=== PATIENT | female | born 1985 | race Caucasian/White ===

== ENCOUNTER → 2018-01-06 11:19 | Outpatient (CLI) | payer OTHER, SELFPAY ==
[2018-01-06 12:02] LABS: Basophils % 0.5 % (0.1-2.0); Eosinophils # 0.2 K/mm3 (0.0-0.4); Eosinophils % 2.7 % (0.1-12.0); Hematocrit 40.6 % (37.0-47.0); Hemoglobin 13.6 g/dL (12.2-16.2); Lymphocytes # 1.5 K/mm3 (0.7-4.5); Lymphocytes % 27.1 K/mm3 (10-50); Mean Corpuscular HGB Conc 33.5 g/dL (31.8-35.4); Mean Corpuscular Volume 95.6 fl (81-99); Mean Platelet Volume 7.6 fl (7.4-10.4); Monocytes # 0.2 K/mm3 (0.1-1.0); Monocytes % 3.7 % (1.7-9.3); Neutrophils # 3.8 K/mm3 (1.8-7.8); Neutrophils % 66.1 % (37.0-80.0); Platelet Count 226 K/mm3 (142-424); Red Blood Count 4.24 M/mm3 (4.20-5.40); Red Cell Distribution Width 12.5 % (11.5-17.5); White Blood Count 5.7 K/mm3 (4.8-10.8)
[2018-01-06 13:03] LABS: Thyroid Stimulating Hormone 0.48 uIU/ml (0.358-3.740)
== END ==
PROVIDERS: Visit Provider Obstetrics & Gynecology
DX: Z01.419 Encounter for gynecological examination (general) (routine) without abnormal findings (principal); N93.8 Other specified abnormal uterine and vaginal bleeding
CPT/HCPCS: 36415; 84443; 85025

== ENCOUNTER → 2018-01-29 12:54 | Outpatient (CLI) | payer OTHER, SELFPAY ==
--- NOTE | 2018-01-29 12:57 | US_ITS ---
US transvaginal HISTORY: ITS.REASON: pelvic pain ORDERING PHYSICIAN: Heber Valencia MD PATIENT AGE: 32 years Comparison: None FINDINGS: Uterus measures 9 x 5 x 6 cm with a combined endometrial thickness of 11 mm. scar is present along the lower uterine segment anteriorly. No uterine mass evident. The right ovary is 4.5 x 4.8 cm. There is a complex septated right ovarian cyst which measures 4 x 2.3 cm with some low-level echoes The left ovary is 3.7 x 1.8 cm and contains small cysts. No cul-de-sac fluid. IMPRESSION: 1. Endometrial thickness upper limits of normal at 11 mm. 2. Complex septated right ovarian cyst at 4 cm. There are small left ovarian cysts measuring up to 1 cm. Suggest follow-up ultrasound in 6-12 weeks to confirm resolution of the larger ovarian cyst
== END ==
PROVIDERS: Family Provider Obstetrics & Gynecology; PCP Family Medicine; Visit Provider Obstetrics & Gynecology
DX: R10.2 Pelvic and perineal pain (principal)
CPT/HCPCS: 76830

== ENCOUNTER → 2018-12-15 13:51 | Outpatient (CLI) | payer OTHER, SELFPAY ==
[2018-12-15 14:31] LABS: Basophils % 0.5 % (0.1-2.0); Eosinophils # 0.2 K/mm3 (0.0-0.4); Eosinophils % 2.7 % (0.1-12.0); Hematocrit 37.2 % (37.0-47.0); Hemoglobin 12.4 g/dL (12.2-16.2); Lymphocytes # 1.7 K/mm3 (0.7-4.5); Lymphocytes % 25.9 % (10-50); Mean Corpuscular HGB Conc 33.3 g/dL (31.8-35.4); Mean Corpuscular Hemoglobin 31.3 pg (27.0-31.2); Mean Corpuscular Volume 94.1 fl (81-99); Mean Platelet Volume 7.2 fl (7.4-10.4); Monocytes # 0.3 K/mm3 (0.1-1.0); Monocytes % 3.9 % (1.7-9.3); Neutrophils # 4.3 K/mm3 (1.8-7.8); Platelet Count 297 K/mm3 (142-424); Red Blood Count 3.96 M/mm3 (4.20-5.40); White Blood Count 6.4 K/mm3 (4.8-10.8)
[2018-12-15 15:11] LABS: Thyroid Stimulating Hormone 1.22 uIU/ml (0.358-3.740)
== END ==
PROVIDERS: Visit Provider Obstetrics & Gynecology
DX: N93.8 Other specified abnormal uterine and vaginal bleeding (principal); R10.2 Pelvic and perineal pain
CPT/HCPCS: 36415; 84443; 85025

== ENCOUNTER → 2018-12-18 15:59 | Outpatient (CLI) | payer OTHER, SELFPAY ==
--- NOTE | 2018-12-18 16:05 | US_ITS ---
US transvaginal HISTORY: ITS.REASON: dub ORDERING PHYSICIAN: Heber Valencia MD PATIENT AGE: 33 years Comparison: None FINDINGS: The uterus measures 8 x 5 x 5 cm with a combined endometrial thickness of 16 mm. There is some heterogeneous echogenicity of the endometrial. No uterine mass demonstrated. The left ovary is 2.3 x 1.8 x 2.2 cm and contains a 1.5 cm cyst. The right ovary is 3.3 x 2 cm and contains a 2 cm septated cyst. No cul-de-sac fluid evident. IMPRESSION: 1. Thickened endometrium at 16 mm with some heterogeneous echogenicity of the endometrium. 2. 2 cm septated right ovarian cyst
== END ==
PROVIDERS: PCP Family Medicine; Visit Provider Obstetrics & Gynecology
DX: N93.8 Other specified abnormal uterine and vaginal bleeding (principal); R10.2 Pelvic and perineal pain
CPT/HCPCS: 76830

== ENCOUNTER → 2019-01-13 15:35 | Outpatient (CLI) | payer OTHER, SELFPAY ==
--- NOTE | 2019-01-13 15:36 | US_ITS ---
US transvaginal HISTORY: ITS.REASON: pelvic pain abnormal uterine bleeding, follow-up thickened endometrium and ovarian cyst ORDERING PHYSICIAN: Heber Valencia MD PATIENT AGE: 33 years Comparison: 12/18/2018 FINDINGS: The uterus is 9 x 4 x 5 cm with a combined endometrial thickness of 12 mm previously at 16 mm. Echogenic foci are once again noted within the endometrium The left ovary is 2.7 x 1.6 cm. Small follicular cysts are present. The right ovary is 3.2 x 2 cm and contains small follicles. Previously noted septated right ovarian cyst has decreased in size now measuring 16 x 13 mm No cul-de-sac fluid evident. IMPRESSION: 1. Thickened endometrium with heterogeneous echogenicity. Endometrium measures 12 mm in thickness previously at 16 mm. 2. Decrease in size in the septated right ovarian cyst
== END ==
PROVIDERS: PCP Family Medicine; Visit Provider Obstetrics & Gynecology
DX: R10.2 Pelvic and perineal pain (principal)
CPT/HCPCS: 76830

== ENCOUNTER 2020-07-09 11:54 | Emergency (ER) | payer OTHER, SELFPAY ==
[2020-07-09 12:06] VITALS: BP 159/93; PULSE 82; RESP 17; TEMP 37.4; O2SAT 94; BMI 27.1
[2020-07-09 12:13] LABS: Microscopic, Urine URINE MICROSCOPIC (MICROSCOPIC)
--- NOTE | 2020-07-09 12:15 | HMH.EDUROGF ---
ED Disposition Clinical Impression: Menometrorrhagia UTI (urinary tract infection) Qualifiers: Urinary tract infection type: acute cystitis Hematuria presence: with hematuria Qualified Code(s): N30.01 - Acute cystitis with hematuria Disposition: Home, Self-Care Condition on Discharge: Fair Additional Instructions: No significant lab abnormality. No significant anemia. Patient advised to use nonsteroidal anti-inflammatory for decrease prostaglandin effect and to only both pain and bleeding relief. Urine did show evidence of urinary tract infection with nitrate positive urine indicating likely gram-negative infection. Patient will be treated with ciprofloxacin as she has allergy to cephalosporins. Patient advised to follow-up with PCP and DIRECTOR OF MEDIA for urine culture results as well as to discuss heavy periods and treatment options. Prescriptions: Ciprofloxacin HCl [Cipro 500mg Tab] 500 mg PO BID #14 tab Transmission Status: Pending to [facility] Referrals: Nathanael Browne [Primary Care Provider] - - Critical Care Critical Care Time: No Attestation: On , the high probability of a clinically significant, sudden or life threatening deterioration of the following system(s) required my full and direct attention, intervention and personal management. The time I documented below is in addition to time spent performing reported procedures but includes the following listed in this critical care notation. Medical Decision Making - Medical Records Medical records reviewed: Yes: I reviewed the patient's medical records. - Diego Inquiry Pt receiving controlled substance: No Vital Signs: 07/09/20 12:06 Temperature 99.3 F Temperature Source Oral Pulse Rate [Right Radial] 82 Respiratory Rate 17 Blood Pressure [Right Arm] 159/93 H Blood Pressure Mean [Right Arm] 115 02 Sat by Pulse Oximetry 94 L Oxygen Delivery Method Room Air - Lab Data Lab results reviewed: Yes: I reviewed the patient's lab results. Lab Results 07/09/20 12:05: Urine Color Red, Urine Appearance Turbid, Urine pH 8.5, Ur Specific [place] 1.020, Urine Protein 2+, Urine Glucose (UA) Negative, Urine Ketones Trace, Urine Blood 3+, Urine Nitrate Positive, Urine Bilirubin Negative, Urine Urobilinogen 1.0, Ur Leukocyte Esterase 1+ A, Urine RBC Tntc, Urine WBC 3-5, Ur Squamous Epith Cells Occasional, Urine Bacteria 1+ 07/09/20 12:05: Urine HCG, Qual Negative 07/09/20 12:20: WBC 7.7, RBC 4.66, Hgb 13.9, Hct 43.4, MCV 93.1, MCH 29.9, MCHC 32.1, RDW 16.3, Plt Count 329, MPV 7.4, Neut % (Auto) 75.1, Lymph % (Auto) 18.9, [facility] % (Auto) 3.6, Eos % (Auto) 1.8, Baso % (Auto) 0.5, Neut # (Auto) 5.8, Lymph # (Auto) 1.5, [facility] # (Auto) 0.3, Eos # (Auto) 0.1, Baso # (Auto) 0.0 07/09/20 12:20: Sodium 138, Potassium 4.1, Chloride 108 H Result diagrams: 07/09/20 12:20 07/09/20 12:20 Orders (Tests/Meds): ED MEDICATIONS Discontinued Medications Generic Name Dose Route Start Last Admin Trade Name Freq PRN Reason Stop Dose Admin Ketorolac Tromethamine 30 mg 07/09/20 12:18 07/09/20 12:29 Ketorolac 30mg/Ml Vial IV 07/09/20 12:19 30 mg ONCE ONE Administration Ondansetron HCl 8 mg 07/09/20 12:18 07/09/20 12:29 Ondansetron 4mg/2ml Vial IV 07/09/20 12:19 8 mg ONCE ONE Administration ORDERS Category Date Time Status Comprehensive Metabolic Panel Stat Lab 07/09/20 12:20 Results PT/INR [Prothrombin Time INR] Stat Lab 07/09/20 12:20 Received Urine Culture Stat Micro 07/09/20 12:05 Received Female Urogenital HPI - General Chief complaint: Vaginal Bleeding Stated complaint: uterine pain, excessive bleeding Time Seen by Provider: 07/09/20 12:10 Mode of Arrival: Ambulatory Source of Information: Patient Limitations: No Limitations Description of Symptoms (Recalled from ER Triage Doc. by RN): pt reports to ed with c/o heavy vaginal bleeding and clots/abdominal pain and cramping. pt states this is abnormal for her. denies pregna
[2020-07-09 12:17] LABS: Appearance,Urine TURBID (Clear); Bilirubin,Urine Negative (Negative); Blood, Urine 3+ (Negative); Color,Urine RED (Yellow); Glucose,Urine (UA) Negative (Negative); Ketones,Urine TRACE (Negative); Leukocyte Esterase,Urine 1+ (Negative); Nitrate,Urine POSITIVE (Negative); PH,Urine 8.5 (5.0-8.5); Protein,Urine 2+ (Negative)
[2020-07-09 12:18] LABS: Urine Pregnancy, HCG Qual. Negative (Negative)
[2020-07-09 12:29] LABS: Bacteria,Urine 1+ /lpf; RBC,Urine TNTC #/hpf (0-3); Squamous Epithelial Cell,Urine Occasional #/hpf (0-5)
[2020-07-09 12:32] LABS: Basophils % 0.5 % (0.1-2.0); Eosinophils # 0.1 K/mm3 (0.0-0.4); Eosinophils % 1.8 % (0.1-12.0); Hematocrit 43.4 % (37.0-47.0); Hemoglobin 13.9 g/dL (12.2-16.2); Lymphocytes # 1.5 K/mm3 (0.7-4.5); Lymphocytes % 18.9 % (10-50); Mean Corpuscular HGB Conc 32.1 g/dL (31.8-35.4); Mean Corpuscular Hemoglobin 29.9 pg (27.0-31.2); Mean Corpuscular Volume 93.1 fl (81-99); Mean Platelet Volume 7.4 fl (7.4-10.4); Monocytes # 0.3 K/mm3 (0.1-1.0); Monocytes % 3.6 % (1.7-9.3); Neutrophils # 5.8 K/mm3 (1.8-7.8); Neutrophils % 75.1 % (37.0-80.0); Platelet Count 329 K/mm3 (142-424); Red Blood Count 4.66 M/mm3 (4.20-5.40); Red Cell Distribution Width 16.3 % (11.5-17.5); White Blood Count 7.7 K/mm3 (4.8-10.8)
[2020-07-09 12:35] LABS: Chloride 108 mmol/L (98-107); Potassium 4.1 mmoL/L (3.5-5.1); Sodium 138 mmol/L (136-145)
[2020-07-09 12:38] LABS: Alanine Aminotransferase 11 U/L (12-78); Albumin Level 4.2 g/dl (3.5-5.0); Albumin/Globulin Ratio 1.6 (1.1-1.8); Alkaline Phosphatase 67 U/L (38-126); Anion Gap 9.1 mEq/L (5-15); Aspartate Amino Transferase 19 U/L (14-36); Bilirubin,Total 0.4 mg/dl (0.2-1.3); Blood Urea Nitrogen 16 mg/dl (7-17); Carbon Dioxide 25 mmol/L (22.0-30.0); Creatinine Clearance Estimated 186 mL/min (50-200); Estimated Glomerular Filt Rate 115 ml/min (>60); GFR (African American) 139 ML/MIN (>60); Globulin 2.7 g/dL (1.3-3.2); Total Protein,Serum 6.9 g/dl (6.3-8.2)
[2020-07-09 12:39] LABS: Calcium 9.1 mg/dl (8.4-10.2); Glucose 101 mg/dl (74-100)
[2020-07-09 12:43] LABS: INR 1.01 (0.9-1.1); Prothrombin Time 11.2 seconds (9.4-11.8)
[2020-07-09 12:45] VITALS: BP 135/71; PULSE 67; RESP 18; O2SAT 97
[2020-07-09 13:16] VITALS: BP 116/60; PULSE 65; RESP 17; TEMP 36.8; O2SAT 100
== END 2020-07-09 13:22 | disposition home or self-care (01) ==
PROVIDERS: Emergency Provider Emergency Medicine; PCP Family Medicine
DX: N30.01 Acute cystitis with hematuria (principal); N92.1 Excessive and frequent menstruation with irregular cycle; F17.210 Nicotine dependence, cigarettes, uncomplicated
CPT/HCPCS: 80053; 81001; 81025; 85025; 85610; 87086; 96374; 96375; 99283; J2405

== ENCOUNTER 2022-03-09 15:34 | Emergency (ER) | payer OTHER, SELFPAY ==
[2022-03-09] VITALS (8 sets, daily range): BP systolic 118–168; BP diastolic 61–92; PULSE 87–110; RESP 16–19; TEMP 36.8–37.2; O2SAT 96–99; BMI 40.7
--- NOTE | 2022-03-09 15:50 | CT_ITS ---
FINAL REPORT CLINICAL HISTORY: R/O STONE, LEFT FLANK PAIN FINDINGS: Axial CT images of the abdomen and pelvis were obtained without intravenous contrast. Coronal reformatted images were also obtained.This study was performed with techniques to keep radiation doses as low as reasonably achievable (ALARA). Individualized dose reduction techniques using automated exposure control or adjustment of mA and/or kV according to the patient's size were employed. Abdomen: There is a 5 mm nodule in the left lower lobe which is nonspecific. There is no evidence of renal stone or hydronephrosis. The gallbladder is present. The liver is fatty infiltrated. The spleen and pancreas have an unremarkable, unenhanced appearance. No mass or adenopathy is seen. There is left nanci phrenic stranding. The left renal vein is mildly enlarged. There are multiple mildly enlarged para-aortic lymph nodes, favor reactive. Pelvis: The appendix is normal. Images of the pelvis reveal no evidence of ureteral dilation or ureteral stone.No mass or abnormal fluid collection is identified. There is a right hip arthroplasty. IMPRESSION: No renal or ureteral stone, or hydronephrosis. Abnormal appearing left kidney which may represent left pyelonephritis or possibly left renal vein thrombosis. Follow-up study with contrast may be helpful. 5 mm left lower lobe nodule, nonspecific and favor benign. If indicated, follow-up chest CT in 12 months. Reviewed, Interpreted and Dictated by Jaime Okeefe III, MD Transcribed by Sol Jaramillo Authenticated and [facility]
[2022-03-09 15:58] LABS: Microscopic, Urine URINE MICROSCOPIC (MICROSCOPIC)
[2022-03-09 16:01] LABS: Appearance,Urine CLEAR (Clear); Blood, Urine TRACE-I (Negative); Color,Urine YELLOW (Yellow); Glucose,Urine (UA) Negative (Negative); Ketones,Urine 1+ (Negative); Leukocyte Esterase,Urine Negative (Negative); Nitrate,Urine Negative (Negative); Protein,Urine 1+ (Negative); Urobilinogen,Urine 0.2 EU/dl (0.2)
[2022-03-09 16:04] LABS: Urine Pregnancy, HCG Qual. Negative (Negative)
[2022-03-09 16:07] LABS: Bilirubin,Urine 1+ (Negative)
[2022-03-09 16:22] LABS: Basophils % 0.3 % (0.1-2.0); Eosinophils # 0.2 K/mm3 (0.0-0.4); Eosinophils % 1.9 % (0.1-12.0); Lymphocytes # 1.2 K/mm3 (0.7-4.5); Lymphocytes % 10.4 % (10-50); Mean Corpuscular HGB Conc 33.4 g/dL (31.8-35.4); Mean Corpuscular Volume 98.9 fl (81-99); Mean Platelet Volume 7.6 fl (7.4-10.4); Monocytes # 0.4 K/mm3 (0.1-1.0); Monocytes % 3.6 % (1.7-9.3); Neutrophils # 9.6 K/mm3 (1.8-7.8); Neutrophils % 83.8 % (37.0-80.0); Platelet Count 214 K/mm3 (142-424); Red Blood Count 4.25 M/mm3 (4.20-5.40); Red Cell Distribution Width 15.5 % (11.5-17.5); White Blood Count 11.4 K/mm3 (4.8-10.8)
[2022-03-09 16:32] LABS: Alanine Aminotransferase 26 U/L (12-78); Albumin/Globulin Ratio 1.3 (1.1-1.8); Alkaline Phosphatase 85 U/L (38-126); Anion Gap 12.2 mEq/L (5-15); Aspartate Amino Transferase 22 U/L (14-36); Bilirubin,Total 0.5 mg/dl (0.2-1.3); Blood Urea Nitrogen 3 mg/dl (7-17); Calcium 9.2 mg/dl (8.4-10.2); Carbon Dioxide 24 mmol/L (22.0-30.0); Chloride 103 mmol/L (98-107); Creatinine Clearance Estimated 221 mL/min (50-200); Estimated Glomerular Filt Rate 141 ml/min (>60); GFR (African American) 171 ML/MIN (>60); Glucose 99 mg/dl (74-100); Potassium 3.2 mmoL/L (3.5-5.1); Sodium 136 mmol/L (136-145)
[2022-03-09 16:36] LABS: Bacteria,Urine Trace /lpf; RBC,Urine Occasional #/hpf (0-3); WBC,Urine Occasional #/hpf (0-3)
--- NOTE | 2022-03-09 16:59 | HMH.EDGENADL ---
ED Disposition Clinical Impression: Focal pyelonephritis Disposition: Home, Self-Care Condition on Discharge: Good Instructions: DI for Kidney Infection Additional Instructions: Additional instructions for URINARY TRACT INFECTION: Take Levaquin as prescribed. See your physician next week for follow up and culture results. Return immediately if you have an uncontrollable fever greater than 101 degrees, severe back or abdominal pain, inability to urinate, or repetitive vomiting. Zofran as needed for vomiting. Percocet as needed for pain. Additional instructions for CONTROLLED SUBSTANCES: You have been prescribed a medication that is a controlled substance. Controlled substances include pain medications known as opiates and sedative nerve medications known as benzodiazepines. Tramadol, fioricet, and gabapentin are also controlled substances. Some common opiates include: Codeine (such as Tylenol #3) Hydrocodone (Vicodin, Lortab, Lorcet, [place]) Oxycodone (Percocet, Percodan, Oxycodone, Oxy IR) Some common benzodiazepines include: Diazepam (Valium) Lorazepam (Ativan) Alprazolam (Xanax) Clonazepam (Klonopin) Oxazepam (Serax) All of these controlled substances are highly addictive and frequently abused. Misuse can and frequently does lead to addiction as well as overdose and . Medication should be stored in a locked cabinet or other secure storage unit. Do not store the medication in a motor vehicle. Short term supplies, 3 days or less, are prescribed because of the highly addictive nature of the medication. Any of the controlled substance medication NOT taken should be disposed of properly and NOT SAVED. The recommended method of disposing of unused medications is: Place the medicines in a sealable plastic bag. If the medicine is a solid, crush it or add water to dissolve it. Add something undesirable (cat litter, coffee grounds, etc.) Dispose of sealed bag in household trash Do not flush or pour unused medicines down a sink or drain. Controlled substances should not be shared, given away or sold. Because of the addictive nature and frequent abuse, these medications are sometimes stolen. These medications should be kept in a safe place where they cannot be stolen. Do not keep them in your car or purse. Lost or stolen prescriptions for controlled substances WILL NOT BE REFILLED in this emergency department, regardless of whether a police report was filed. Prescriptions: Oxycodone HCl/Acetaminophen [Percocet 5/325mg tablet] 1 tab PO Q6HP PRN #10 tab PRN Reason: Moderate To Severe Pain Transmission Status: Pending to [facility] levoFLOXacin [Levaquin 500mg tab] 500 mg PO DAILY #14 tab Transmission Status: Pending to [facility] Ondansetron [Zofran 4mg ODT] 4 mg PO TIDP PRN #10 tab PRN Reason: Nausea And Vomiting Transmission Status: Pending to [facility] Referrals: Nathanael Browne [Primary Care Provider] - - Critical Care Critical Care Time: No Attestation: On 03/09/22, the high probability of a clinically significant, sudden or life threatening deterioration of the following system(s) required my full and direct attention, intervention and personal management. The time I documented below is in addition to time spent performing reported procedures but includes the following listed in this critical care notation. Medical Decision Making - Diego Inquiry Pt receiving controlled substance: Yes Diego was queried for this patient: No Reason not queried -: Diego login issues Risks and benefits of using a controlled substance: were discussed with pt by me Vital Signs: 03/09/22 15:35 03/09/22 16:54 03/09/22 17:01 Temperature 98.9 F Temperature Source Oral Pulse Rate 89 89 Pulse Rate [Radial] 110 H Respiratory Rate 16 Blood Pressure 134/80 168/92 H Blood Pressure [Right Radial Artery] 131/85 Blood Pressure Mean Blood Press
--- NOTE | 2022-03-09 17:00 | PC.NURSE ---
Went into room to check on patient. Asked if she needed anything she asked if I could turn off the lights. I turned the lights off and gave patient her call light.
--- NOTE | 2022-03-09 17:06 | CT_ITS ---
PROCEDURE INFORMATION: Exam: CT Abdomen And Pelvis With Contrast; Kidneys Exam date and time: 03/09/2022 5:12 PM Age: 36 years old Clinical indication: Abnormal findings; Abnormal radiologic finding of the abdomen; Radiologic exam and body structure: CT a/p wo; Additional info: Possible renal v. Thrombosis per non-con CT TECHNIQUE: Imaging protocol: Computed tomography of the abdomen and pelvis with intravenous contrast. Exam focused on the kidneys. Radiation optimization: All CT scans at this facility use at least one of these dose optimization techniques: automated exposure control; mA and/or kV adjustment per patient size (includes targeted exams where dose is matched to clinical indication); or iterative reconstruction. Contrast material: ISOVUE; Contrast volume: 75 ml; Contrast route: IV; COMPARISON: CT ABDOMEN PELVIS WO CON 03/09/2022 4:06 PM FINDINGS: Lungs: 5 mm noncalcified posterior left lower lobe nodule again noted series 5, image 3. No acute findings as visualized. No consolidation. Liver: Fatty liver. No hepatomegaly. No mass. Gallbladder and bile ducts: Suspect low-density gallstones, with circular 1.4 cm faint radiodensities seen in the gallbladder lumen, see coronal series 1003, image 35. No calcified stones. No biliary dilatation. Pancreas: The pancreas is normal. Spleen: The spleen is normal. Adrenals: The adrenal glands are normal. Kidneys and ureters: Patchy left renal parenchymal hypoenhancement and perinephric edema, consistent with pyelonephritis, with ill-defined rounded areas of hypodensity which could be coalescing areas of lobar nephronia greatest in the mid and lower kidney. No hydronephrosis or proximal hydroureter. No calcified obstructing stones as visualized. Normal appearance of the right kidney and proximal right ureter. Stomach and bowel: The stomach is normal. Mild fluid distention of left upper quadrant small intestinal loops overlying the left kidney, with air-fluid levels, likely focal ileus or enteritis. No significantly dilated loops or mucosal thickening. No acute findings in the visualized colon. Appendix: A normal appendix is identified. Intraperitoneal space: There is trace edema fluid in the left pericolic gutter, which is likely emanating from the left kidney. No organized intraperitoneal abscess collection. No free air. Lymph nodes: Small nonspecific lymph nodes likely reactive. No significantly enlarged lymph nodes by short axis criteria. Vasculature: There is no aortic aneurysm. Minimal calcified atherosclerotic plaque. Patent enhancing renal veins. No findings of left renal vein thrombosis. No portal venous gas. Bladder: Unremarkable. The bladder lumen is not well enhanced or well distended on this exam, no calcified stones seen. Reproductive: Uterus is unremarkable for age. Small bilateral ovarian cysts up to 2.1 cm, within normal limits for age. No significantly enlarged cyst or mass, as visualized. Bones/joints: Minimal spinal degenerative changes with disc narrowing and spondylosis. No acute fracture or high-grade listhesis.There are no lytic skeletal lesions seen. Right total hip prosthesis appears grossly intact and normally aligned with no CT findings of loosening or infection. Sacroiliitis. Soft tissues: There are no soft tissue masses or fluid collections. IMPRESSION: 1. Left pyelonephritis, with ill-defined rounded areas of hypoenhancing tissue worrisome for lobar nephronia. No rim enhancing abscess. 2. Patent enhancing renal veins, no evidence of renal vein thrombosis. 3. No hydronephrosis or obstructing calcified stones as visualized. 4. Distended small intestinal loops with air-fluid le
[2022-03-09 19:09] LABS: Lactic Acid 0.7 mmol/L (0.7-2.1)
== END 2022-03-09 20:03 | disposition home or self-care (01) ==
PROVIDERS: Emergency Provider Emergency Medicine; PCP Family Medicine
DX: N12 Tubulo-interstitial nephritis, not specified as acute or chronic (principal); M54.50 Low back pain, unspecified; I10 Essential (primary) hypertension; R91.1 Solitary pulmonary nodule; F17.210 Nicotine dependence, cigarettes, uncomplicated; Z88.8 Allergy status to other drugs, medicaments and biological substances; Z82.49 Family history of ischemic heart disease and other diseases of the circulatory system; Z80.9 Family history of malignant neoplasm, unspecified
CPT/HCPCS: 74176; 74177; 80053; 81001; 81025; 83605; 85025; 87040; 87086; 87088; 87186; 96361; 96374; 96375; 96376; 99285; J1956; J2405; Q9967

== ENCOUNTER 2022-04-02 13:59 | Emergency (ER) | payer OTHER, SELFPAY ==
[2022-04-02] VITALS (7 sets, daily range): BP systolic 116–153; BP diastolic 59–89; PULSE 75–95; RESP 16–20; TEMP 36.7–36.8; O2SAT 95–98; BMI 39.4
--- NOTE | 2022-04-02 14:18 | CT_ITS ---
FINAL REPORT CLINICAL HISTORY: left flank pain COMPARISON: 03/09/2022 FINDINGS: Axial CT images of the abdomen and pelvis were obtained without intravenous contrast. Coronal reformatted images were also obtained.This study was performed with techniques to keep radiation doses as low as reasonably achievable (ALARA). Individualized dose reduction techniques using automated exposure control or adjustment of mA and/or kV according to the patient's size were employed. Abdomen: The lung bases are clear. There is mild infiltration of the liver. The gallbladder is partially collapsed with possible stones or sludge. The spleen, pancreas, and adrenal glands are unremarkable. There has been interval improvement in left perinephric inflammation. The right kidney is unremarkable. There is no free fluid or adenopathy Pelvis: The appendix is normal. The urinary bladder is unremarkable. There is a 4.1 cm probable cyst in the left ovary. The patient is status post right hip arthroplasty. IMPRESSION: 1. Fatty liver. 2. Partially collapsed gallbladder with possible stones or sludge. Consider ultrasound for further evaluation. 3. Interval improvement in left perinephric inflammation. 4. Probable cyst in the left ovary. Reviewed, Interpreted and Dictated by Jaime Okeefe III, MD Transcribed by Eden Mason Authenticated and . [facility]
[2022-04-02 14:26] LABS: Microscopic, Urine URINE MICROSCOPIC (MICROSCOPIC)
[2022-04-02 14:28] LABS: Appearance,Urine CLEAR (Clear); Blood, Urine TRACE-L (Negative); Color,Urine YELLOW (Yellow); Glucose,Urine (UA) Negative (Negative); Ketones,Urine TRACE (Negative); Leukocyte Esterase,Urine Negative (Negative); Nitrate,Urine Negative (Negative); Protein,Urine Negative (Negative); Urine Pregnancy, HCG Qual. Negative (Negative); Urobilinogen,Urine 0.2 EU/dl (0.2)
[2022-04-02 14:32] LABS: Bilirubin,Urine 1+ (Negative)
--- NOTE | 2022-04-02 14:43 | HMH.EDGENADL ---
ED Disposition Clinical Impression: Ovarian cyst Qualifiers: Laterality: left Qualified Code(s): N83.202 - Unspecified ovarian cyst, left side Disposition: Home, Self-Care Condition on Discharge: Good Instructions: DI for Ovarian Cyst Prescriptions: Hydrocod/Acet 5/325 mg [[place] 5/325mg tablet] 1 tab PO Q6HP PRN #6 tab PRN Reason: Moderate Pain Transmission Status: Sent to [facility] Referrals: Nathanael Browne [Primary Care Provider] - - Critical Care Critical Care Time: No Attestation: On 04/02/22, the high probability of a clinically significant, sudden or life threatening deterioration of the following system(s) required my full and direct attention, intervention and personal management. The time I documented below is in addition to time spent performing reported procedures but includes the following listed in this critical care notation. Medical Decision Making - Medical Records Medical records reviewed: Yes: I reviewed the patient's medical records. - Diego Inquiry Pt receiving controlled substance: No Vital Signs: 04/02/22 14:00 04/02/22 14:14 04/02/22 14:31 Temperature 98.2 F Temperature Source Oral Pulse Rate 95 H 85 Pulse Rate [Left Radial] 94 H Respiratory Rate 16 Blood Pressure 153/87 H 130/59 L Blood Pressure [Right Arm] 153/87 H Blood Pressure Mean 109 88 Blood Pressure Mean [Right Arm] 109 Blood Pressure Source [Right Arm] Automatic Cuff Blood Pressure Position [Right Arm] Sitting 02 Sat by Pulse Oximetry 97 96 97 Oxygen Delivery Method Room Air - Lab Data Lab Results 04/02/22 14:06: Urine Color Yellow, Urine Appearance Clear, Urine pH 6.0, Ur Specific [place] 1.020, Urine Protein Negative, Urine Glucose (UA) Negative, Urine Ketones Trace, Urine Blood Trace-l, Urine Nitrate Negative, Urine Bilirubin 1+ A, Urine Urobilinogen 0.2, Ur Leukocyte Esterase Negative, Urine RBC Occasional, Urine WBC 3-5, Ur Squamous Epith Cells 10-20, Urine Bacteria 2+, Urine Mucus 2+ 04/02/22 14:06: Urine HCG, Qual Negative 04/02/22 15:10: WBC 5.9, RBC 4.40, Hgb 14.5, Hct 46.3, MCV 105.1 H, MCH 32.9 H, MCHC 31.3 L, RDW 15.9, Plt Count 221, MPV 8.4, Neut % (Auto) 72.0, Lymph % (Auto) 22.0, [place] % (Auto) 3.2, Eos % (Auto) 2.1, Baso % (Auto) 0.7, Neut # (Auto) 4.3, Lymph # (Auto) 1.3, [place] # (Auto) 0.2, Eos # (Auto) 0.1, Baso # (Auto) 0.0 04/02/22 15:10: Sodium 138, Potassium 3.7, Chloride 104, Carbon Dioxide 30, Anion Gap 7.7, BUN 10, Creatinine 0.60, Estimated Creat Clear 184, Estimated GFR 114, Est GFR ( Amer) 138, Glucose 100, Calcium 9.3, Total Bilirubin 0.4, AST 44 H, ALT 32, Alkaline Phosphatase 113, Total Protein 6.8, Albumin 4.2, Globulin 2.6, Albumin/Globulin Ratio 1.6, Lipase 18 L Result diagrams: 04/02/22 15:10 04/02/22 15:10 Orders (Tests/Meds): ORDERS Category Date Time Status Urine Culture Stat Micro 04/02/22 14:06 Received - CT Data CT Scan: Abdomen, Pelvis Time Received: 15:[address] Reviewed: Yes: I have reviewed the patient's CT results, I have viewed the radiologist's interpretation Findings Narrative: IMPRESSION: 1. Fatty liver. 2. Partially collapsed gallbladder with possible stones or sludge. Consider ultrasound for further evaluation. 3. Interval improvement in left perinephric inflammation. 4. Probable cyst in the left ovary. - Reevaluation(s) Time: 15:50 Reevaluation #1: On reevaluation, the patient is feeling better. Her CT with regards to the perinephric inflammation is improved. Urinalysis shows contamination, however no significant changes. I do believe her symptoms are consistent with ovarian cyst which is seen on CT scan. Patient be provided analgesics. Repeat abdomen is benign. No evidence of acute abdomen. Needs to follow-up with PCP in 48 hours. Given strict return precautions. Verbalized understanding. Medical Decision Narrative: 36-year-old female presented with some left-sided flank pain. Katelynn
[2022-04-02 15:00] LABS: Bacteria,Urine 2+ /lpf; Mucus,Urine 2+ /lpf; RBC,Urine Occasional #/hpf (0-3)
--- NOTE | 2022-04-02 15:02 | PC.NURSE ---
rounded on patient asked if there was anything they needed. patient advised that they had no needs at this time.
[2022-04-02 15:16] LABS: Basophils % 0.7 % (0.1-2.0); Eosinophils # 0.1 K/mm3 (0.0-0.4); Eosinophils % 2.1 % (0.1-12.0); Hematocrit 46.3 % (37.0-47.0); Hemoglobin 14.5 g/dL (12.2-16.2); Lymphocytes # 1.3 K/mm3 (0.7-4.5); Mean Corpuscular HGB Conc 31.3 g/dL (31.8-35.4); Mean Corpuscular Hemoglobin 32.9 pg (27.0-31.2); Mean Corpuscular Volume 105.1 fl (81-99); Mean Platelet Volume 8.4 fl (7.4-10.4); Monocytes # 0.2 K/mm3 (0.1-1.0); Monocytes % 3.2 % (1.7-9.3); Neutrophils # 4.3 K/mm3 (1.8-7.8); Platelet Count 221 K/mm3 (142-424); Red Cell Distribution Width 15.9 % (11.5-17.5); White Blood Count 5.9 K/mm3 (4.8-10.8)
[2022-04-02 15:31] LABS: Chloride 104 mmol/L (98-107); Potassium 3.7 mmoL/L (3.5-5.1); Sodium 138 mmol/L (136-145)
[2022-04-02 15:34] LABS: Alanine Aminotransferase 32 U/L (12-78); Albumin Level 4.2 g/dl (3.5-5.0); Albumin/Globulin Ratio 1.6 (1.1-1.8); Alkaline Phosphatase 113 U/L (38-126); Anion Gap 7.7 mEq/L (5-15); Aspartate Amino Transferase 44 U/L (14-36); Bilirubin,Total 0.4 mg/dl (0.2-1.3); Blood Urea Nitrogen 10 mg/dl (7-17); Calcium 9.3 mg/dl (8.4-10.2); Carbon Dioxide 30 mmol/L (22.0-30.0); Creatinine Clearance Estimated 184 mL/min (50-200); Estimated Glomerular Filt Rate 114 ml/min (>60); GFR (African American) 138 ML/MIN (>60); Globulin 2.6 g/dL (1.3-3.2); Glucose 100 mg/dl (74-100); Lipase 18 U/L (23-300); Total Protein,Serum 6.8 g/dl (6.3-8.2)
== END 2022-04-02 16:15 | disposition home or self-care (01) ==
PROVIDERS: Emergency Provider Emergency Medicine; PCP Family Medicine
DX: N83.202 Unspecified ovarian cyst, left side (principal)
CPT/HCPCS: 74176; 80053; 81001; 81025; 83690; 85025; 87086; 99284

== ENCOUNTER 2022-08-25 18:05 | Emergency (ER) | payer OTHER, SELFPAY ==
[2022-08-25 18:35] VITALS: BP 145/78; PULSE 89; RESP 18; TEMP 36.6; O2SAT 97; BMI 35.1
--- NOTE | 2022-08-25 19:18 | EXP.UTC ---
Discharge Plan Disposition Patient Disposition: Home, Self-Care Condition: Good Prescriptions Prescriptions: New prednisone [prednisone] 20 mg tablet 20 mg PO BID Qty: 10 0RF No Action levonorgestrel-ethinyl estrad [Lutera (28)] 0.1-20 mg-mcg tablet 1 tab PO DAILY norethindrone acetate 5 mg tablet 5 mg PO DAILY 10 Days Qty: 10 0RF amoxicillin 500 MG capsule 500 mg PO TID Qty: 30 0RF fluticasone propionate 120 SPR/BOT bottle 1 spr NS DAILY Qty: 1 0RF Rx Instructions: each nostril daily hydrocodone-acetaminophen 1 TAB tablet 1 tab PO Q6HP PRN (Reason: Moderate Pain) Qty: 6 0RF ciprofloxacin HCl 500 MG tablet 500 mg PO BID Qty: 14 0RF oxycodone-acetaminophen 1 EACH tablet 1 tab PO Q6HP PRN (Reason: Moderate To Severe Pain) Qty: 10 0RF levofloxacin 500 MG tablet 500 mg PO DAILY Qty: 14 0RF ondansetron 4 MG tablet,disintegrating 4 mg PO TIDP PRN (Reason: Nausea And Vomiting) Qty: 10 0RF Referrals Follow up/Referrals: Nathanael Browne [Primary Care Provider] - See instructions Activity Restrictions/Add. Instructions Additional Instructions/Restrictions: elevate rest steroids follow up with podiatry Clinical Impressions Clinical Impression: Plantar fasciitis of left foot Instructions Patient Instructions: DI for Plantar Fasciitis [facility] [place] HPI General Stated complaint: knot on RT foot, swollen Mode of Arrival: Ambulatory Source of Information: Patient Limitations: No Limitations Time Seen by Provider: 08/25/22 19:18 Description of Symptoms (Recalled from Triage Doc. by RN): PATIENT C/O SWELLING AND PAIN TO RIGHT LEG FROM KNEE DOWN X 1 WEEK. NO KNOWN INJURY HEENT Symptoms (Recalled from RN notes): No Resp Symptoms (Recalled from RN notes): No Skin Symptoms (Recalled from RN notes): No MS Symptoms (Recalled from RN notes): Yes Functional Status (Recalled from RN notes): WNL History of Present Illness Provider Complaint: 37 yr old female presents for rt foot and leg painfor 1 week. pt states she has a knot on the bottom of her foot with swelling in her ankle. pt states pain is worse when putting weight on it. pt states pain is in the middle of her foot on the bottom. no injury known Related Data Home Medications Medication Instructions Recorded Confirmed levonorgestrel-ethinyl estradiol 1 tab PO DAILY 01/06/18 01/15/19 0.1 mg-20 mcg tablet (Lutera (28)) Previous Rx's Medication Instructions Recorded norethindrone acetate 5 mg tablet 5 mg PO DAILY 10 days #10 tabs 12/25/18 amoxicillin 500 mg capsule 500 mg PO TID #30 caps 09/16/19 fluticasone propionate 50 1 spr NS DAILY ##1 09/16/19 mcg/actuation nasal spray,suspension ciprofloxacin HCl 500 mg tablet 500 mg PO BID #14 tabs 07/09/20 levofloxacin 500 mg tablet 500 mg PO DAILY #14 tabs 03/09/22 ondansetron 4 mg disintegrating 4 mg PO TIDP PRN Nausea And 03/09/22 tablet Vomiting #10 tabs oxycodone-acetaminophen 5 mg-325 1 tab PO Q6HP PRN Moderate To 03/09/22 mg tablet Severe Pain #10 tabs hydrocodone 5 mg-acetaminophen 325 1 tab PO Q6HP PRN Moderate Pain #6 //22 mg tablet tabs prednisone 20 mg tablet 20 mg PO BID #10 tabs 08/25/22 Allergies Allergy/AdvReac Type Severity Reaction Status Date / Time cefaclor Allergy Intermediate I-HIVES Verified 07/09/20 12:11 Worker's Comp Is this a Worker's Comp case?: No [facility] Disclaimer: The information contained in this section may have been updated after the patient was seen, as this information can be updated by other users. Medical History , [employer]) Kidney stone Surgical History , [employer]) History of section History of tubal ligation Social History , [employer]) Smoking Status: Current every day smoker tobacco type: cigar
[2022-08-25 19:20] VITALS: BP 145/78; PULSE 89; RESP 18; TEMP 36.6; O2SAT 97
== END 2022-08-25 19:50 | disposition home or self-care (01) ==
PROVIDERS: Emergency Provider Nurse Practitioner Family; PCP Family Medicine
DX: M72.2 Plantar fascial fibromatosis (principal)
CPT/HCPCS: 99212; 99213; G0463